=== PATIENT | male | born 1930 | race Two or more races ===

== ENCOUNTER 2017-07-08 21:29 | Inpatient (IN) | payer MEDICARE, OTHER ==
[~2017-07-08] VITALS: Ht 172.7 cm; Wt 61.2 kg
--- NOTE | 2017-07-08 21:45 | NUR ---
86 YO MALE BB AMBULANCE FROM [facility]. PATIENT IS ORIENTED TO SELF, PER EMS, PATIENT WAS SENT TO [facility] ED FOR COUGH CONGESTION WITH FEVER. PATIENT WAS DS TO ER BED, SKIN WARM AND DRY, RESP EVEN AND UNLABORED. PATIENT GOWNED, PLACED ON TAPPER SUPERVISOR. AWAITING ORDERS FROM PROVIDER, WILL CONTINUE TO MONITOR
[2017-07-08] MEDS ORDERED: PIPERACILLIN /TAZOBACTAM 3.375 G VIAL IV ONE (21:51)
--- NOTE | 2017-07-08 21:55 | NUR ---
PATIENT TRANSPORTED TO CT VIA GURNEY BY RADIOLOGY
[2017-07-08] MEDS ORDERED: IV NS 0.9% 1,000 ML BAG IV ONE (22:00)
[2017-07-08] MEDS ORDERED: IV NS 0.9% 500 ML BAG IV ONE (22:00)
[2017-07-08] MEDS ORDERED: PIPERACILLIN /TAZOBACTAM 3.375 G in IV D5W 50 ML IV ONE (22:00)
--- NOTE | 2017-07-08 22:06 | NUR ---
20G RIGHT FA IV STARTED, BLOOD SAMPLE OBTAINED AND SENT TO LAB. MEDICATED PT ORDERED
[2017-07-08 22:18] LABS: BASOPHILS % (AUTO) 0.2 % (0.0-2.0); HEMATOCRIT 35 % (39-51); HEMOGLOBIN 11.6 g/dL (13.5-17.5); LYMPHOCYTES # (AUTO) 1.6 /CMM (0.8-4.8); LYMPHOCYTES % (AUTO) 7.7 % (20.0-44.0); MEAN CORPUSCULAR HGB CONC 33 g/dl (31.0-36.0); MEAN CORPUSCULAR VOLUME 94 fL (80-96); MONOCYTES # (AUTO) 0.8 /CMM (0.1-1.30); MONOCYTES % (AUTO) 3.8 % (2.0-12.0); NEUTROPHILS # (AUTO) 17.8 /CMM (1.8-8.9); NEUTROPHILS % (AUTO) 88.3 % (43.0-81.0); PLATELET COUNT (AUTO) 442 /CMM (150-450); RDW COEFFICIENT OF VARIATION 13.4 (11.5-15.0); RED BLOOD CELL COUNT(AUTO) 3.69 MIL/uL (4.5-6.0); WHITE BLOOD COUNT (AUTO) 20.2 K/uL (4.3-11.0)
[2017-07-08 22:26] LABS: CALCIUM, SERUM 9.2 mg/dL (8.5-10.1); CARBON DIOXIDE 31 mmol/L (21-32); CHLORIDE 105 mmol/L (98-107); GLUCOSE 116 mg/dL (74-106); POTASSIUM 4.1 mmol/L (3.5-5.1); SODIUM SERUM 141 mmol/L (136-145); UREA NITROGEN, BLOOD 21 mg/dL (7-18)
[2017-07-08 22:32] LABS: ALANINE AMINOTRANSFERASE 18 U/L (12-78); ALBUMIN 2.1 g/dL (3.4-5.0); ALKALINE PHOSPHATASE 59 U/L (46-116); ASPARTATE AMINOTRANSFERASE 16 U/L (15-37); BILIRUBIN,DIRECT 0.1 mg/dL (0.0-0.2); BILIRUBIN,TOTAL 0.4 mg/dL (0.2-1.0); TOTAL PROTEIN, SERUM 6.8 g/dL (6.4-8.2); TROPONIN I < 0.017 ng/mL (0.00-0.056)
[2017-07-08 22:41] LABS: INR 1.25 (0.87-1.13)
[2017-07-08 23:19] LABS: APPEARANCE,URINE CLOUDY (CLEAR); BILIRUBIN,URINE NEGATIVE (NEGATIVE); BLOOD, URINE 3+ Ery/uL (NEGATIVE); COLOR,URINE DARK YELLOW (YELLOW); KETONES,URINE NEGATIVE (NEGATIVE); LEUKOCYTE ESTERASE ,URINE 1+ (NEGATIVE); NITRITE, URINE POSITIVE (NEGATIVE); PROTEIN,URINE 2+ mg/dl (NEGATIVE); UGLUCOSE NEGATIVE (NEGATIVE); UROBILINOGEN,URINE 0.2 EU/dL (0.2)
[2017-07-08 23:23] LABS: RBC,URINE TOO NUMEROUS TO COUN /HPF (0-2)
[2017-07-08 23:24] LABS: BACTERIA,URINE Many /HPF (None Seen); SQUAMOUS EPITHELIAL CELL,UR Few /HPF (None Seen); WBC,URINE 51-80 /HPF (0-3)
--- NOTE | 2017-07-08 23:47 | NUR ---
REPORT GIVEN TO MICHAEL COBB FOR SENDY
[2017-07-09] VITALS: BP 110/62
--- NOTE | 2017-07-09 | NUR ---
FARM PLANNER ADMITTING NOTES RECEIVED PATIENT FROM ER, NOTED WITH BILATERAL SOFT WRIST RESTRAINTS, TRANSFERRED TO INPATIENT ROOM , ASSESSED WRIST NOTED WNL, SKIN INTACT, PALPABLE PULSES, RANGE OF MOTION WNL, IV SITE TO RIGHT WRIST 22 GAUGE INTACT AND PATENT, NO REDNESS NO INFILTRATION PRESENT, RESPIRATIONS EVEN AND UNLABORED , NO SOB NOTED AT THIS TIME, NOTED SUPRAPUBIC CATHETER INTACT AND DRAINING WELL , NOTED URINE YELLOW, BODY ASSESSMENT DONE NOTED WITH BILATERAL UPPER ARM SCATTERED INTACT DISCOLORATIONS AND SACRAL AND RIGHT TROCHANTER REDNESS, PICTURES TAKEN, SITES COVERED WITH MEPILEX AND OFFLOADED AREAS, PRESSURE REDUCING MATTRESS IN PLACE, PATIENT ALERT AND ORIENTED TO SELF , NOTED USING PROFANITY IN [place] AND ATTEMPTING TO KICK AND HIT STAFF. REMAINS AFEBRILE AT THIS TIME, NO FACIAL GRIMACING OR MOANS PRESENT. MD AWARE OF ADMISSION WITH NEW ORDERS NOTED AND CARRIED OUT , ON IT DATA ARCHITECT SR 80. WILL CONTINUE TO MONITOR , PATIENT REMAINS COMFORTABLE AT THIS TIME, ORIENTED TO ROOM STAFF, CALL LIGHT, SAFETY MEASURES IN PLACE , CALL LIGHT WITHIN REACH.
--- NOTE | 2017-07-09 00:06 | NUR ---
TRANSPORTED PT TO TELE BED WITHOUT INCIDENT
[2017-07-09] MEDS ORDERED: MAG HYDROX/AL HYDROX/SIMETH 30 ML UDC PO PRN (00:30)
[2017-07-09] MEDS ORDERED: Z GUARD REMEDY 2 OZ OINT TP PRN (00:30)
[2017-07-09] MEDS ORDERED: ACETAMINOPHEN 325 MG TABLET PO PRN (00:30)
[2017-07-09] MEDS ORDERED: VANCOMYCIN 1 GM in IV NS 0.9% 250 ML IV ONE (00:30)
[2017-07-09] MEDS ORDERED: HYDROCODONE/APAP 5/325MG 1 EACH TABLET PO PRN (00:30)
[2017-07-09] MEDS ORDERED: MAGNESIUM HYDROXIDE 30 ML UDC PO PRN (00:30)
[2017-07-09] MEDS ORDERED: ONDANSETRON HCL/PF 4 MG/2 ML VIAL IVP PRN (00:30)
[2017-07-09] MEDS: IV NS 0.9% 1,000 ML IV PRN (01:05)
[2017-07-09] MEDS ORDERED: VANCOMYCIN 1 GM VIAL ONE (01:11)
[2017-07-09] MEDS ORDERED: PIPERACILLIN /TAZOBACTAM 3.375 G VIAL IV ONE (01:11)
[2017-07-09 04:00] VITALS: BP_SYST 111; BP_SYST 117; BP_DIAS 49; BP_DIAS 56
[2017-07-09 04:51] VITALS: BP 117/56
[2017-07-09] MEDS ORDERED: PIPERACILLIN /TAZOBACTAM 3.375 G in IV D5W 50 ML IV SCH (06:00)
--- NOTE | 2017-07-09 06:55 | NUR ---
TRANSMISSION SUPERVISOR NOTES PATIENT REMAINS IN BED, REPOSITIONED , FREQUENT CHECKS ORDERED, AWAKE ALERT X 1 , RESPIRATION EVEN AND UNLABORED, NO DISTRESS, BILATERAL SOFT WRIST RESTRAINTS INTACT, WITHOUT ANY ISSUES , SUPRAPUBIC CATHETER REMAINS INTACT, IVF RUNNING ORDERED, IV SITE INTACT AND PATENT NO REDNESS , NO INFILTRATION PRESENT, SAFETY MEASURES IN PLACE, CALL LIGHT KEPT WITHIN REACH , PATIENT REMAINS AFEBRILE AT THIS TIME, COMFORTABLE , WILL CONTINUE TO MONITOR AND ENDORSE TO NEXT SHIFT. Addendum: 07/09/17 at 0659 by NICOLE WHEAT RN CLOSING
--- NOTE | 2017-07-09 07:25 | NUR ---
RN NOTES PATIENT A/OX1, VERBALLY RESPONSIVE BUT INCOHERENT, PATIENT IS ON BILATERAL SOFT WRIST RESTRAINTS DUE TO ATTEMPT OF PULLING OUT LINES, PATIENT STILL APPEARS RESTLESS, PUTTING BOTH FEET ON THE SIDERAILS, PATIENT RE-DIRECTED, PATIENT'S PIV PATENT AND FLUSHES WELL, WITH IVF INFUSING AND TOLERATING WELL, PATIENT KEPT NPO AT THIS TIME, ST EVAL STILL PENDING. NEEDS ATTENDED, SAFETY MEASURES IN PLACED, CALL LIGHT WITHIN REACH, WILL CONTINUE TO MONITOR.
[2017-07-09 07:34] LABS: BASOPHILS % (AUTO) 0.2 % (0.0-2.0); HEMATOCRIT 31 % (39-51); HEMOGLOBIN 10.4 g/dL (13.5-17.5); LYMPHOCYTES # (AUTO) 1.3 /CMM (0.8-4.8); LYMPHOCYTES % (AUTO) 10.7 % (20.0-44.0); MEAN CORPUSCULAR HGB CONC 34 g/dl (31.0-36.0); MEAN CORPUSCULAR VOLUME 95 fL (80-96); MONOCYTES # (AUTO) 0.6 /CMM (0.1-1.30); MONOCYTES % (AUTO) 4.8 % (2.0-12.0); NEUTROPHILS # (AUTO) 10.7 /CMM (1.8-8.9); NEUTROPHILS % (AUTO) 84.3 % (43.0-81.0); PLATELET COUNT (AUTO) 334 /CMM (150-450); RDW COEFFICIENT OF VARIATION 13.4 (11.5-15.0); RED BLOOD CELL COUNT(AUTO) 3.26 MIL/uL (4.5-6.0); WHITE BLOOD COUNT (AUTO) 12.6 K/uL (4.3-11.0)
[2017-07-09 07:38] LABS: CALCIUM, SERUM 8.7 mg/dL (8.5-10.1); CARBON DIOXIDE 30 mmol/L (21-32); CHLORIDE 109 mmol/L (98-107); CREATININE 0.9 mg/dL (0.6-1.3); GLUCOSE 99 mg/dL (74-106); PHOSPHORUS 2.5 mg/dL (2.5-4.9); POTASSIUM 3.8 mmol/L (3.5-5.1); SODIUM SERUM 141 mmol/L (136-145); UREA NITROGEN, BLOOD 17 mg/dL (7-18)
[2017-07-09 08:00] VITALS: BP 138/54
[2017-07-09] MEDS ORDERED: FEE PK DOSING 1 MIN EA MC ONE (08:11)
[2017-07-09 08:17] LABS: CHOLESTEROL 102 mg/dL (<200); HDL CHOLESTEROL 35 mg/dL (40-60); LDL 63 mg/dL (0-99); THYROID STIMULATING HORMONE 1.534 uIU/mL (0.358-3.74); TRIGLYCERIDES 54 mg/dL (30-150)
[2017-07-09] MEDS ORDERED: NIAC50TA4 PO (08:37)
[2017-07-09] MEDS ORDERED: CRAN3875 PO (08:37)
[2017-07-09] MEDS ORDERED: DONE10TA11 PO (08:37)
[2017-07-09] MEDS ORDERED: CRAN425C6 PO (08:37)
[2017-07-09] MEDS ORDERED: VALP250C PO (08:37)
[2017-07-09] MEDS ORDERED: ACET-868 PO (08:37)
[2017-07-09] MEDS ORDERED: DOCU100C36 PO (08:37)
[2017-07-09] MEDS ORDERED: LEVO25TA9 PO (08:37)
[2017-07-09] MEDS: PIPERACILLIN /TAZOBACTAM 2.25 G in IV D5W 50 ML IV SCH ×2 (12:09→17:08)
[2017-07-09] MEDS: VANCOMYCIN 500 MG in IV D5W 100 ML IV SCH (13:29)
[2017-07-09 16:00] VITALS: BP 130/71
[2017-07-09] MEDS: DIVALPROEX SODIUM 250 MG TABLET.DR PO SCH (16:06)
[2017-07-09] MEDS: DOCUSATE SODIUM 100 MG CAPSULE PO SCH (16:06)
--- NOTE | 2017-07-09 18:36 | NUR ---
RN NOTES PATIENT A/OX1, STILL ON BILATERAL SOFT WRIST RESTRAINTS DUE TO RESTLESSNESS, COMBATIVENESS, AND ATTEMPTING TO PULL OUT SUPRACUBIC CATHETER, PATIENT IS STILL NPO AT THIS TIME, IVF ONGOING AND TOLERATING WELL, IV ANTIBIOTICS GIVEN ORDERED, PATIENT IS TURNED AND REPOSITIONED EVERY 2 HOURS, SKIN CARE RENDERED, Z-GUARD AND MEPILEX APPLIED FOR SKIN MANAGEMENT, OFFLOADED BILATERAL HEELS, DVT PUMP IN PLACED, SUPRAPUBIC CATHETER DRAINING WITH YELLOW URINE. NEEDS ATTENDED AND MET, CALL LIGHT WITHIN REACH, WILL ENDORSE TO LEAD GENERATION REPRESENTATIVE FOR SENDY.
--- NOTE | 2017-07-09 19:35 | NUR ---
MS RN OPENING NOTES RECEIVED PT SITTING UPRIGHT IN BED. AWAKE AND RESPONSIVE, AFEBRILE. RESPIRATIONS ARE EVEN AND UNLABORED, NOT IN ANY ACUTE DISTRESS NOTED. NO FACIAL GRIMACING NOTED. SAFETY MEASURES ARE IN PLACE. BED IS IN ITS LOWEST AND LOCKED POSITION. WILL CONTINUE TO MONITOR THROUGHOUT SHIFT.
[2017-07-09 20:00] VITALS: BP 139/68
[2017-07-09] MEDS: DONEPEZIL 5 MG TABLET PO SCH (21:21)
--- NOTE | 2017-07-09 21:21 | NUR ---
MS RN NOTES PT IS CURRENTLY NPO D/T AWAITING ST EVAL. NO ASPIRATIONS NOTED AT THIS TIME. PO MEDICATIONS WITHHELD. WILL CONTINUE TO MONITOR PT THROUGHOUT SHIFT.
[2017-07-10] MEDS: PIPERACILLIN /TAZOBACTAM 2.25 G in IV D5W 50 ML IV SCH ×5 (00:32→23:04)
[2017-07-10] MEDS: IV NS 0.9% 1,000 ML IV PRN (00:33)
[2017-07-10] MEDS: VANCOMYCIN 500 MG in IV D5W 100 ML IV SCH ×2 (01:48→13:37)
--- NOTE | 2017-07-10 06:29 | NUR ---
MS RN CLOSING NOTES ALL NEEDS MET AND RENDERED. AWAKE AND RESPONSIVE, AFEBRILE. RESPIRATIONS ARE EVEN AND UNLABORED, NOT IN ANY ACUTE DISTRESS NOTED. NO FACIAL GRIMACING OR MOANING NOTED. NO C/O SOB, N/V. SUPRAPUBIC CATH IN PLACE, FREE OF KINKS, DRAINING YELLOW URINE. IV SITE INTACT, NO INFILTRATION NOTED. DRESSING KEPT CLEAN AND DRY. SAFETY MEASURES ARE IN PLACE. BED IS IN ITS LOW AND LOCKED POSITION. WILL ENDORSE TO NEXT SHIFT FOR CONTINUITY OF CARE.
--- NOTE | 2017-07-10 07:05 | NUR ---
RN NOTES PT IS LAYING DOWN IN BED, SLEEPING COMFORTABLY. PT ON RA, RESPIRATIONS ARE EVEN AND UNLABORED. IV ON RFA INTACT AND RUNNING NS @ 50ML/HR. SUPRAPUBIC CATHETER IS INTACT AND DRAINING TO GRAVITY. SOFT WRIST RESTRAINTS ARE IN PLACE, NO SIGNS OF IRRITATION NOTED ON SKIN. SAFETY MEASURES ARE IN PLACE, CALL LIGHT IS IN REACH. WILL CONTINUE TO MONITOR.
[2017-07-10] MEDS: LEVOTHYROXINE SODIUM 25 MCG TABLET PO SCH (07:30)
[2017-07-10 08:00] VITALS: BP 114/77
[2017-07-10] MEDS: DOCUSATE SODIUM 100 MG CAPSULE PO SCH ×2 (08:45→16:48)
[2017-07-10] MEDS: DIVALPROEX SODIUM 250 MG TABLET.DR PO SCH ×3 (09:00→16:48)
--- NOTE | 2017-07-10 09:10 | NUR ---
WOUND CARE CONSULT: PT PRESENTS WITH LEFT BUTTOCK DEEP TISSUE INJURY WHICH IS INTACT, RT TROCHANTER BLANCHABLE REDNESS, SACRAL BLANCHABLE REDNESS WITH BONY AREA AND SOME SCARRING NOTED TO RT BUTTOCKS. PT ON NAVEED ISOFLEX LOW AIRLOSS BED. ALL WOUND CARE RECOMMENDATIONS AND SKIN PROTECTION MEASURES IN PLACE AND DISCUSSED WITH NURSING STAFF. PT IS COMBATIVE AT TIMES PER NURSING STAFF. CURRENT DIANA SCORE IS 13. PT HAS SUPRAPUBIC CATH. Addendum: 07/10/17 at 0913 by KRISTIN LINDO WNDNU Amended: Links added.
[2017-07-10 16:00] VITALS: BP_SYST 114; BP_SYST 122; BP_DIAS 62; BP_DIAS 66
--- NOTE | 2017-07-10 18:29 | NUR ---
RN NOTES PT IS SITTING UP IN BED, RESTING COMFORTABLY. PT ON RA, RESPIRATIONS ARE EVEN AND UNLABORED. IV ON RFA INTACT AND RUNNING NS @ 50ML/HR. SUPRAPUBIC CATHETER IS INTACT AND DRAINING TO GRAVITY. SOFT WRIST RESTRAINTS ARE IN PLACE, SKIN CHECK DONE Q2HRS, NO SIGNS OF IRRITATION NOTED. ALL MEDS WERE GIVEN ORDERED AND PT NEEDS MET. SAFETY MEASURES ARE IN PLACE, CALL LIGHT IS IN REACH. WILL ENDORSE TO RADIOPHARMACIST RN FOR CONTINUITY OF CARE.
--- NOTE | 2017-07-10 19:24 | NUR ---
MS RN NOTES: RECEIVED PT IN BED ON 2LPM VIA NC. PT ASLEEP AT THIS TIME. PT HAS BILATERAL SOFT WRIST RESTRAINTS. PT HAS SUPRAPUBIC CATH AND IS ATTACHED TO DRAINAGE BAG WITH YELLOW URINE DRAINING. PT HAS IV ON R FOREARM #22G AND IS BEING INFUSED WITH NS AT 50ML/HR. CALL LIGHT WITHIN PT'S REACH. BED KEPT IN LOW, LOCKED POSITION, AND SIDE RAILS X 2UP. WILL CONTINUE TO MONITOR PT.
[2017-07-10 20:01] VITALS: BP 123/54
[2017-07-10] MEDS: DONEPEZIL 5 MG TABLET PO SCH (21:28)
[2017-07-11] MEDS: VANCOMYCIN 500 MG in IV D5W 100 ML IV SCH ×2
[2017-07-11] MEDS: IV NS 0.9% 1,000 ML IV PRN (03:48)
[2017-07-11] MEDS: PIPERACILLIN /TAZOBACTAM 2.25 G in IV D5W 50 ML IV SCH (05:03)
--- NOTE | 2017-07-11 07:05 | NUR ---
RN NOTES PT IS LAYING DOWN IN BED, AWAKE, AND RESTING COMFORTABLY. PT ON RA, RESPIRATIONS ARE EVEN AND UNLABORED. IV ON RFA INTACT AND RUNNING NS @ 50ML/HR. SOFT WRIST RESTRAINTS ARE IN PLACE, NO IRRITATION NOTED. SAFETY MEASURES ARE IN PLACE, CALL LIGHT IS IN REACH. WILL CONTINUE TO MONITOR.
--- NOTE | 2017-07-11 07:30 | NUR ---
MS RN CLOSING NOTES: ALL NEEDS WERE ATTENDED AND ANTICIPATED FOR. PT IN BED ON 2LPM VIA NC. PT HAS BILATERAL SOFT WRIST RESTRAINTS. PT HAS SUPRAPUBIC CATH AND IS ATTACHED TO DRAINAGE BAG WITH YELLOW URINE DRAINING. OUTPUT WAS 1100ML. PT HAS IV ON R FOREARM #22G AND IS BEING INFUSED WITH NS AT 50ML/HR. CALL LIGHT WITHIN PT'S REACH. BED KEPT IN LOW, LOCKED POSITION, AND SIDE RAILS X 2UP. ENDORSED TO AM NURSE FOR SENDY.
[2017-07-11 08:00] VITALS: BP 115/62
[2017-07-11] MEDS: DIVALPROEX SODIUM 250 MG TABLET.DR PO SCH ×3 (08:18→16:47)
[2017-07-11] MEDS: DOCUSATE SODIUM 100 MG CAPSULE PO SCH ×2 (08:18→16:47)
[2017-07-11] MEDS: LEVOTHYROXINE SODIUM 25 MCG TABLET PO SCH (08:18)
[2017-07-11 10:32] LABS: BASOPHILS % (AUTO) 0.2 % (0.0-2.0); EOSINOPHILS % (AUTO) 0.7 % (0.0-6.0); HEMATOCRIT 34 % (39-51); HEMOGLOBIN 11.5 g/dL (13.5-17.5); LYMPHOCYTES # (AUTO) 1.4 /CMM (0.8-4.8); LYMPHOCYTES % (AUTO) 17.4 % (20.0-44.0); MEAN CORPUSCULAR HGB CONC 34 g/dl (31.0-36.0); MEAN CORPUSCULAR VOLUME 94 fL (80-96); MONOCYTES # (AUTO) 0.4 /CMM (0.1-1.30); MONOCYTES % (AUTO) 5.2 % (2.0-12.0); NEUTROPHILS # (AUTO) 5.9 /CMM (1.8-8.9); NEUTROPHILS % (AUTO) 76.5 % (43.0-81.0); PLATELET COUNT (AUTO) 448 /CMM (150-450); RDW COEFFICIENT OF VARIATION 13.3 (11.5-15.0); RED BLOOD CELL COUNT(AUTO) 3.64 MIL/uL (4.5-6.0); WHITE BLOOD COUNT (AUTO) 7.8 K/uL (4.3-11.0)
[2017-07-11 10:49] LABS: CALCIUM, SERUM 8.6 mg/dL (8.5-10.1); CARBON DIOXIDE 27 mmol/L (21-32); CHLORIDE 107 mmol/L (98-107); CREATININE 0.9 mg/dL (0.6-1.3); GLUCOSE 114 mg/dL (74-106); PHOSPHORUS 2.9 mg/dL (2.5-4.9); SODIUM SERUM 139 mmol/L (136-145); UREA NITROGEN, BLOOD 9 mg/dL (7-18)
[2017-07-11] MEDS: CEFAZOLIN 1 GM in IV D5W 50 ML IV SCH ×2 (12:46→20:02)
[2017-07-11] MEDS ORDERED: BARIUM SULFATE 240 ML ORAL.SUSP PO ONE (14:42)
[2017-07-11] MEDS ORDERED: BARIUM SULFATE 148 GM SUSP.RECON PO ONE (14:43)
[2017-07-11 16:00] VITALS: BP 126/60
--- NOTE | 2017-07-11 18:27 | NUR ---
RN NOTES PT IS LAYING DOWN IN BED, RESTING COMFORTABLY. PT ON RA, RESPIRATIONS ARE EVEN AND UNLABORED. IV ON RFA INTACT AND PATENT. SUPRAPUBIC CATHETER IS IN PLACE AND DRAINING TO GRAVITY. SOFT WRIST RESTRAINTS ARE IN PLACE, SKIN CHECKED Q2HRS, NO SIGNS OF IRRITATION NOTED. NO SIGNS OF DISTRESS NOTED. SAFETY MEASURES ARE IN PLACE, CALL LIGHT IS IN REACH. WILL ENDORSE TO WEATHERIZATION SPECIALIST RN FOR CONTINUITY OF CARE.
--- NOTE | 2017-07-11 19:17 | NUR ---
MS COBB OPENING NOTES: RECEIVED PT IN BED AND IS AWAKE. PT IS ON BILATERAL SOFT WRIST RESTRAINTS. NO S/S OF DISTRESS. PT ON 2LPM VIA NC. BED ALARM ACTIVATED. CALL LIGHT WITHIN PT'S REACH. BED KEPT IN LOW, LOCKED POSITION, AND SIDE RAILS X 2UP. PT ON IV AND IS BEING INFUSED AT NS WITH TKO. WILL CONTINUE TO MONITOR PT. Addendum: 07/11/17 at 2000 by POLLY KOWALSKI RN PT HAS SUPRAPUBIC CATH AND IS ATTACHED TO DRAINAGE BAG WITH YELLOW URINE DRAINING.
[2017-07-11 20:00] VITALS: BP 107/60
[2017-07-11 20:47] VITALS: BP 107/60
[2017-07-11] MEDS: DONEPEZIL 5 MG TABLET PO SCH (21:04)
[2017-07-12] MEDS: CEFAZOLIN 1 GM in IV D5W 50 ML IV SCH ×2 (04:04→12:29)
--- NOTE | 2017-07-12 06:24 | NUR ---
MS RN CLOSING NOTES: ALL NEEDS WERE ATTENDED AND ANTICIPATED. PT IS AWAKE AND IS FAROESE SPEAKING ONLY. PT IS A/OX1. PT KEPT CLEAN, DRY, AND COMFORTABLE. PT HAS IV ON R FOREARM AND IS PATENT AND INTACT. PT HAS BILATERAL SOFT WRIST RESTRAINTS PT ATTEMPTS TO GET OUT OF BED AND PULL OUT HIS LINES. PT HAS SUPRAPUBIC CATH AND IS ATTACHED TO DRAINAGE BAG. OUTPUT WAS 500ML. BED ALARM ACTIVATED. CALL LIGHT WITHIN PT'S REACH. BED KEPT IN LOW, LOCKED POSITION, AND SIDE RAILS X 2UP. WILL ENDORSE TO AM NURSE FOR SENDY.
[2017-07-12 07:16] LABS: BASOPHILS % (AUTO) 0.3 % (0.0-2.0); EOSINOPHILS % (AUTO) 1.5 % (0.0-6.0); HEMATOCRIT 35 % (39-51); HEMOGLOBIN 11.9 g/dL (13.5-17.5); LYMPHOCYTES # (AUTO) 1.3 /CMM (0.8-4.8); LYMPHOCYTES % (AUTO) 18.4 % (20.0-44.0); MEAN CORPUSCULAR HGB CONC 34 g/dl (31.0-36.0); MEAN CORPUSCULAR VOLUME 94 fL (80-96); MONOCYTES # (AUTO) 0.5 /CMM (0.1-1.30); MONOCYTES % (AUTO) 7.4 % (2.0-12.0); NEUTROPHILS # (AUTO) 5.1 /CMM (1.8-8.9); NEUTROPHILS % (AUTO) 72.4 % (43.0-81.0); PLATELET COUNT (AUTO) 411 /CMM (150-450); RDW COEFFICIENT OF VARIATION 13.1 (11.5-15.0); RED BLOOD CELL COUNT(AUTO) 3.75 MIL/uL (4.5-6.0)
--- NOTE | 2017-07-12 07:45 | NUR ---
MS RN OPENING NOTE PATIENT IS RESTING IN BED AT THIS TIME. ALERT AND ORIENTED X1. NO FACIAL GRIMACING NOTED. NO SOB OR DISTRESS NOTED. ABLE TO COMMUNICATE NEEDS. IV INTACT AND PATENT NO REDNESS OR SWELLING NOTED. CALL LIGHT WITHIN REACH. SAFETY MEASURES IMPLEMENTED. ON 2L/MIN VIA NASAL CANNULA TOLERATING WELL. ON SOFT RESTRAINTS FOR SAFETY. [facility] SOFT DIET WITH NECTAR THICK LIQUID. WILL CONTINUE TO MONITOR THROUGHOUT SHIFT
[2017-07-12 08:00] VITALS: BP 137/68
[2017-07-12 08:25] LABS: CALCIUM, SERUM 8.7 mg/dL (8.5-10.1); CARBON DIOXIDE 30 mmol/L (21-32); CHLORIDE 105 mmol/L (98-107); CREATININE 0.8 mg/dL (0.6-1.3); GLUCOSE 82 mg/dL (74-106); PHOSPHORUS 2.6 mg/dL (2.5-4.9); POTASSIUM 3.8 mmol/L (3.5-5.1); SODIUM SERUM 140 mmol/L (136-145); UREA NITROGEN, BLOOD 9 mg/dL (7-18)
[2017-07-12] MEDS: LEVOTHYROXINE SODIUM 25 MCG TABLET PO SCH (08:28)
[2017-07-12] MEDS: DOCUSATE SODIUM LIQ 100 MG/10 ML UDC PO SCH ×2 (08:28→17:06)
[2017-07-12] MEDS: DIVALPROEX SODIUM 250 MG TABLET.DR PO SCH ×3 (08:28→17:06)
[2017-07-12 16:00] VITALS: BP 128/67
--- NOTE | 2017-07-12 18:48 | NUR ---
MS RN CLOSING NOTE PATIENT RESTING COMFORTABLY AT THIS TIME. NO PAIN NOTED. NO SOB OR DISTRESS NOTED. CALL LIGHT WITHIN REACH AT ALL TIMES. SAFETY MEASURES IMPLEMENTED ABLE TO COMMUNICATE NEEDS. IV INTACT AND PATENT NO REDNESS OR SWELLING NOTED. ALL DUE MEDICATIONS GIVEN ORDERED. ALL NURSING CARE NEEDS ATTENDED TO NEEDED. SOFT RESTRAINTS FOR SAFETY, WOUND TREATMENT DONE. WILL ENDORSE TO CRIMINAL PSYCHOLOGIST FOR SENDY
--- NOTE | 2017-07-12 19:35 | NUR ---
RN MS OPENING NOTES RECEIVED PATIENT IN BED ,AWAKE ALERT ORIENTED X1 ,VERBALLY RESPONSIVE IN DIVE[place], RESPIRATIONS EVEN AND UNLABORED, NO FACIAL GRIMACING, NO COMPLAINTS OF PAIN OR DISCOMFORT AT THIS TIME, SUPRAPUBIC CATHETER INTACT AND PATENT,DRAINING WELL, RIGHT FA 22 GAUGE INTACT AND PATENT,SOFT BILATERAL WRIST RESTRAINTS ON , ASSESSMENT DONE TO WRIST SKIN INTACT ,PALPABLE PULSES , NO COMPLICATIONS NOTED, ORIENTED TO STAFF AND CALL LIGHT, SAFETY MEASURES IN PLACE WILL CONTINUE TO MONITOR, PATIENT REMAINS COMFORTABLE AT THIS TIME.
[2017-07-12 20:00] VITALS: BP 139/61
[2017-07-12] MEDS: CEFAZOLIN 1 GM in IV NS 0.9% 50 ML IV SCH (20:24)
[2017-07-12] MEDS: DONEPEZIL 5 MG TABLET PO SCH (22:32)
[2017-07-12 23:25] VITALS: BP 139/61
--- NOTE | 2017-07-13 03:50 | NUR ---
RN MS NOTES PATIENT REPOSITIONED TO OFFLOAD RIGHT SIDE HIP AFFECTED AREA, PILLOWS PLACED ON RIGHT SIDE TO OFFLOAD, HOWEVER PATIENT SELF REPOSITIONED BACK TO RIGHT SIDE. WILL CONTINUE TO MONITOR , WOUND DRESSING CHANGED, INTACT AND DRY
[2017-07-13] MEDS: CEFAZOLIN 1 GM in IV NS 0.9% 50 ML IV SCH ×3 (04:23→21:44)
--- NOTE | 2017-07-13 04:58 | NUR ---
RN MS NOTES WOUND CARE DONE ORDERED,DRESSINGS DRY AND INTACT NO DETERIORATION PRESENT, OFFLOADED AFFECTED SITES.
[2017-07-13] MEDS: LEVOTHYROXINE SODIUM 25 MCG TABLET PO SCH (06:31)
--- NOTE | 2017-07-13 06:43 | NUR ---
RN MS CLOSING NOTES PATIENT IN BED ,AWAKE ALERT ORIENTED X1 ,VERBALLY RESPONSIVE IN ARAB[place], RESPIRATIONS EVEN AND UNLABORED, NO FACIAL GRIMACING, NO COMPLAINTS OF PAIN OR DISCOMFORT AT THIS TIME, SUPRAPUBIC CATHETER INTACT AND PATENT,DRAINING WELL, LEFT WRIST 22 GAUGE INTACT AND PATENT NO REDNESS , NO INFILTRATION PRESENT,SOFT BILATERAL WRIST RESTRAINTS ON , ASSESSMENT DONE TO WRIST SKIN INTACT ,PALPABLE PULSES , NO COMPLICATIONS NOTED, SAFETY MEASURES IN PLACE WILL CONTINUE TO MONITOR, AND ENDORSE TO NEXT SHIFT FOR CONTINUITY OF CARE, PATIENT REMAINS COMFORTABLE AT THIS TIME.
--- NOTE | 2017-07-13 07:30 | NUR ---
RN OPENING NOTES RECEIVED PT. IN BED AWAKE, CONFUSED, PT. WAS REORIENTED, AND REPOSITIONED. BREATHING UNLABORED, AND EVENLY ON OXYGEN AT 2L/MIN. NO SOB. NO S/S OF ACUTE DISTRESS. PT. HAS SUPRAPUBIC CATHETER WITH 150 CC OUTPUT OF CLEAR, AND YELLOW URINE. WEARING BILATERAL SOFT WRIST RESTRAINTS. BED IS IN LOWEST, AND LOCKED POSITION. 2 SIDE RAILS UP, AND CALL LIGHT IS WITHIN REACH. ALL NEEDS MET. WILL CONTINUE TO ASSESS AND MONITOR.
[2017-07-13 07:36] LABS: BASOPHILS % (AUTO) 0.2 % (0.0-2.0); HEMATOCRIT 36 % (39-51); HEMOGLOBIN 12.1 g/dL (13.5-17.5); LYMPHOCYTES # (AUTO) 1.2 /CMM (0.8-4.8); LYMPHOCYTES % (AUTO) 15.8 % (20.0-44.0); MEAN CORPUSCULAR HGB CONC 34 g/dl (31.0-36.0); MEAN CORPUSCULAR VOLUME 93 fL (80-96); MONOCYTES # (AUTO) 0.3 /CMM (0.1-1.30); MONOCYTES % (AUTO) 3.6 % (2.0-12.0); NEUTROPHILS # (AUTO) 5.7 /CMM (1.8-8.9); NEUTROPHILS % (AUTO) 78.4 % (43.0-81.0); PLATELET COUNT (AUTO) 376 /CMM (150-450); RDW COEFFICIENT OF VARIATION 13.3 (11.5-15.0); RED BLOOD CELL COUNT(AUTO) 3.84 MIL/uL (4.5-6.0); WHITE BLOOD COUNT (AUTO) 7.3 K/uL (4.3-11.0)
[2017-07-13 08:00] VITALS: BP 127/66
[2017-07-13 08:05] LABS: CALCIUM, SERUM 8.9 mg/dL (8.5-10.1); CARBON DIOXIDE 29 mmol/L (21-32); CHLORIDE 106 mmol/L (98-107); CREATININE 0.7 mg/dL (0.6-1.3); GLUCOSE 77 mg/dL (74-106); MAGNESIUM 2.2 mg/dL (1.8-2.4); PHOSPHORUS 2.8 mg/dL (2.5-4.9); POTASSIUM 4.4 mmol/L (3.5-5.1); SODIUM SERUM 141 mmol/L (136-145); UREA NITROGEN, BLOOD 11 mg/dL (7-18)
[2017-07-13] MEDS: DOCUSATE SODIUM LIQ 100 MG/10 ML UDC PO SCH ×3 (08:57→17:25)
--- NOTE | 2017-07-13 08:59 | NUR ---
RN NOTES PT. WAS REFUSING PO MEDICATIONS, COLACE, AND VALPORIC ACID. PT. WAS SPITTING OUT MEDICATION.
[2017-07-13] MEDS ORDERED: VALPROIC ACID 250 MG/5 ML UDC GT SCH (09:00)
[2017-07-13 16:00] VITALS: BP 159/73
[2017-07-13] MEDS: VALPROATE 500 MG in IV D5W 100 ML IV SCH ×2 (16:30→20:43)
--- NOTE | 2017-07-13 19:30 | NUR ---
RN CLOSING NOTES PT. IN BED AWAKE, CONFUSED, PT. WAS REORIENTED, AND REPOSITIONED. BREATHING UNLABORED, AND EVENLY ON OXYGEN AT 2L/MIN VIA NASAL CANNULA. NO SOB. NO S/S OF ACUTE DISTRESS. PT. HAS SUPRAPUBIC CATHETER WITH 250 CC OUTPUT OF CLEAR, AND YELLOW URINE. WEARING BILATERAL SOFT WRIST RESTRAINTS. BED IS IN LOWEST, AND LOCKED POSITION. 2 SIDE RAILS UP, AND CALL LIGHT IS WITHIN REACH. ALL NEEDS MET. WILL ENDORSE REPORT TO NURSE.
--- NOTE | 2017-07-13 19:55 | NUR ---
RN MS OPENING NOTES RECEIVED PATIENT IN BED ,AWAKE ALERT ORIENTED X1 ,VERBALLY RESPONSIVE IN GREEK, RESPIRATIONS EVEN AND UNLABORED, NO FACIAL GRIMACING, NO COMPLAINTS OF PAIN OR DISCOMFORT AT THIS TIME, SUPRAPUBIC CATHETER INTACT AND PATENT,DRAINING WELL, RIGHT UPPER ARM MIDLINE INTACT AND PATENT,SOFT BILATERAL WRIST RESTRAINTS ON , ASSESSMENT DONE TO WRIST SKIN INTACT ,PALPABLE PULSES , NO COMPLICATIONS NOTED, REPOSITIONED, ORIENTED TO STAFF AND CALL LIGHT, SAFETY MEASURES IN PLACE WILL CONTINUE TO MONITOR, PATIENT REMAINS COMFORTABLE AT THIS TIME. ASPIRATIONS PRECAUTIONS OBSERVED, HEAD OF BED ELEVATED
[2017-07-13 20:00] VITALS: BP 144/74
--- NOTE | 2017-07-13 20:40 | NUR ---
RN MS NOTES CALLED PHARMACY TO NOTIFY OF ATN ANCEF MISSING , PER PHARM WILL BRING ATB, AWAITING ARRIVAL
[2017-07-13] MEDS: DONEPEZIL 5 MG TABLET PO SCH (21:47)
[2017-07-14] MEDS: VALPROATE 500 MG in IV D5W 100 ML IV SCH ×3 (04:48→21:16)
[2017-07-14] MEDS: CEFAZOLIN 1 GM in IV NS 0.9% 50 ML IV SCH ×3 (06:02→20:22)
[2017-07-14] MEDS: LEVOTHYROXINE SODIUM 25 MCG TABLET PO SCH (06:29)
[2017-07-14 06:47] LABS: BASOPHILS % (AUTO) 0.4 % (0.0-2.0); EOSINOPHILS % (AUTO) 3.8 % (0.0-6.0); HEMATOCRIT 32 % (39-51); HEMOGLOBIN 10.8 g/dL (13.5-17.5); LYMPHOCYTES # (AUTO) 1.2 /CMM (0.8-4.8); LYMPHOCYTES % (AUTO) 20.9 % (20.0-44.0); MEAN CORPUSCULAR HGB CONC 34 g/dl (31.0-36.0); MEAN CORPUSCULAR VOLUME 94 fL (80-96); MONOCYTES # (AUTO) 0.4 /CMM (0.1-1.30); MONOCYTES % (AUTO) 7.5 % (2.0-12.0); NEUTROPHILS # (AUTO) 3.9 /CMM (1.8-8.9); NEUTROPHILS % (AUTO) 67.4 % (43.0-81.0); PLATELET COUNT (AUTO) 368 /CMM (150-450); RDW COEFFICIENT OF VARIATION 13.5 (11.5-15.0); RED BLOOD CELL COUNT(AUTO) 3.42 MIL/uL (4.5-6.0); WHITE BLOOD COUNT (AUTO) 5.7 K/uL (4.3-11.0)
[2017-07-14 06:53] LABS: CALCIUM, SERUM 8.3 mg/dL (8.5-10.1); CARBON DIOXIDE 30 mmol/L (21-32); CHLORIDE 105 mmol/L (98-107); CREATININE 0.7 mg/dL (0.6-1.3); GLUCOSE 92 mg/dL (74-106); MAGNESIUM 1.8 mg/dL (1.8-2.4); PHOSPHORUS 2.6 mg/dL (2.5-4.9); POTASSIUM 3.5 mmol/L (3.5-5.1); SODIUM SERUM 140 mmol/L (136-145); UREA NITROGEN, BLOOD 13 mg/dL (7-18)
--- NOTE | 2017-07-14 07:00 | NUR ---
RN MS CLOSING NOTES PATIENT IN BED ,AWAKE ALERT ORIENTED X1 ,VERBALLY RESPONSIVE IN SWEDISH, RESPIRATIONS EVEN AND UNLABORED, NO FACIAL GRIMACING, NO COMPLAINTS OF PAIN OR DISCOMFORT AT THIS TIME, SUPRAPUBIC CATHETER INTACT AND PATENT,DRAINING WELL, RIGHT UPPER ARM MIDLINE INTACT AND PATENT,SOFT BILATERAL WRIST RESTRAINTS ON , ASSESSMENT DONE TO WRIST SKIN INTACT ,PALPABLE PULSES , NO COMPLICATIONS NOTED, REPOSITIONED, CALL LIGHT, SAFETY MEASURES IN PLACE WILL CONTINUE TO MONITOR, PATIENT REMAINS COMFORTABLE AT THIS TIME. ASPIRATIONS PRECAUTIONS OBSERVED, HEAD OF BED ELEVATED WILL ENDORSE TO NEXT SHIFT.
[2017-07-14 07:11] LABS: VALPROIC ACID 97 ug/mL (50-100)
--- NOTE | 2017-07-14 07:42 | NUR ---
RN OPENING NOTES RECEIVED PT. IN BED SLEEPING. BREATHING UNLABORED, AND EVENLY ON OXYGEN AT 2L/MIN VIA NASAL CANNULA. NO SOB. NO S/S OF ACUTE DISTRESS. PT. HAS SUPRAPUBIC CATHETER. PT. IS WEARING BILATERAL SOFT WRIST RESTRAINTS. BED IS IN LOWEST, AND LOCKED POSITION. 2 SIDE RAILS UP, AND PADDED. CALL LIGHT IS WITHIN REACH. ALL NEEDS MET. WILL CONTINUE TO ASSESS AND MONITOR.
[2017-07-14 08:00] VITALS: BP 130/62
[2017-07-14] MEDS: DOCUSATE SODIUM LIQ 100 MG/10 ML UDC PO SCH ×2 (08:39→16:33)
[2017-07-14] MEDS ORDERED: METRONIDAZOLE 500MG/ NS 100ML 500 MG in PREMIX 1 EA IV SCH (12:00)
[2017-07-14] MEDS ORDERED: risperiDONE-M 0.5 MG TAB.RAPDIS PO SCH (12:30)
[2017-07-14 16:00] VITALS: BP 118/55
[2017-07-14] MEDS: FLUCONAZOLE IN NS 100 MG in PREMIX 1 EA IV SCH ×2 (16:24)
[2017-07-14] MEDS: risperiDONE-M 0.5 MG TAB.RAPDIS PO SCH (17:42)
--- NOTE | 2017-07-14 19:00 | NUR ---
RN CLOSING NOTES PT. IS IN BED A&OX1, CONFUSED. BREATHING UNLABORED, AND EVENLY ON OXYGEN AT 2L/MIN VIA NASAL CANNULA. NO SOB. NO S/S OF ACUTE DISTRESS. PT. HAS SUPRAPUBIC CATHETER 400 CC OF CLEAR, AND YELLOW URINE WAS REMOVED. PT. IS WEARING BILATERAL SOFT WRIST RESTRAINTS, DUE TO PULLING OUT LINES, AND BEING COMBATIVE DURING MEDICAL CARE. PT. WAS TURNED AND REPOSITIONED. BED IS IN LOWEST, AND LOCKED POSITION. 2 SIDE RAILS UP, AND PADDED. CALL LIGHT IS WITHIN REACH. ALL NEEDS MET. WILL ENDORSE REPORT TO NURSE.
--- NOTE | 2017-07-14 19:30 | NUR ---
RECEIVED PATIENT IN BED AWAKE, AO X 1, RESPONSIVE TO VOICE AND TOUCH. NO ACUTE DISTRESS NOTED. NO SIGNS OF PAIN NOTED AT THIS TIME. IV SITE PATENT, INTACT. SUPRAPUBIC CATH PATENT, INTACT; DRAINING CLEAR YELLOW URINE. PATIENT IS VERY COOPERATIVE AND CALM. NO RESTRAINTS USED AT THIS TIME. SAFETY REMINDERS GIVEN. ON LOW BED WITH BILATERAL UPPER SIDE RAILS UP. CALL POLLACK WITHIN EASY REACH. WILL CONTINUE TO CLOSELY MONITOR.
[2017-07-14 20:00] VITALS: BP 143/66
[2017-07-14] MEDS: DONEPEZIL 5 MG TABLET PO SCH (21:16)
[2017-07-15] VITALS: BP 115/68
[2017-07-15 04:00] VITALS: BP 115/69
[2017-07-15] MEDS: CEFAZOLIN 1 GM in IV NS 0.9% 50 ML IV SCH ×2 (04:38→12:27)
--- NOTE | 2017-07-15 04:50 | NUR ---
PATIENT NOTED TO BE RESTLESS, TRYING TO PULL OUT MIDLINE, RESISTING CARE; POOR SAFETY AWARENESS. ORDER RECEIVED AND CARRIED OUT FOR BILATERAL SOFT WRIST RESTRAINT FOR PATIENT'S SAFETY. WILL CONTINUE TO MONITOR.
[2017-07-15] MEDS: VALPROATE 500 MG in IV D5W 100 ML IV SCH (05:21)
--- NOTE | 2017-07-15 06:13 | NUR ---
PATIENT ASLEEP, EASILY AROUSABLE. NO SIGNS OF PAIN NOTED. DUE MEDS GIVEN WITH NO ASE NOTED. NEEDS ATTENDED. KEPT CLEAN, DRY, AND COMFORTABLE. SAFETY PRECAUTIONS AND COMFORT MEASURES IN PLACE. WILL GIVE REPORT TO DAY SHIFT FOR CONTINUITY OF CARE.
[2017-07-15 06:40] LABS: BASOPHILS % (AUTO) 0.4 % (0.0-2.0); EOSINOPHILS % (AUTO) 2.9 % (0.0-6.0); HEMATOCRIT 31 % (39-51); HEMOGLOBIN 10.4 g/dL (13.5-17.5); LYMPHOCYTES # (AUTO) 1.5 /CMM (0.8-4.8); LYMPHOCYTES % (AUTO) 21.3 % (20.0-44.0); MEAN CORPUSCULAR HGB CONC 34 g/dl (31.0-36.0); MEAN CORPUSCULAR VOLUME 94 fL (80-96); MONOCYTES # (AUTO) 0.4 /CMM (0.1-1.30); MONOCYTES % (AUTO) 5.7 % (2.0-12.0); NEUTROPHILS # (AUTO) 4.8 /CMM (1.8-8.9); NEUTROPHILS % (AUTO) 69.7 % (43.0-81.0); PLATELET COUNT (AUTO) 369 /CMM (150-450); RDW COEFFICIENT OF VARIATION 13.4 (11.5-15.0); RED BLOOD CELL COUNT(AUTO) 3.29 MIL/uL (4.5-6.0); WHITE BLOOD COUNT (AUTO) 6.9 K/uL (4.3-11.0)
[2017-07-15 07:32] LABS: CALCIUM, SERUM 8.3 mg/dL (8.5-10.1); CARBON DIOXIDE 31 mmol/L (21-32); CHLORIDE 107 mmol/L (98-107); CREATININE 0.7 mg/dL (0.6-1.3); GLUCOSE 102 mg/dL (74-106); PHOSPHORUS 2.6 mg/dL (2.5-4.9); POTASSIUM 4.1 mmol/L (3.5-5.1); SODIUM SERUM 143 mmol/L (136-145); UREA NITROGEN, BLOOD 12 mg/dL (7-18)
[2017-07-15 08:00] VITALS: BP 121/63
--- NOTE | 2017-07-15 08:00 | NUR ---
MS COBB AM NOTES RECEIVED PATIENT IN BED AWAKE, AO X 1, RESPONSIVE TO VOICE AND TOUCH. NO ACUTE DISTRESS NOTED. NO SIGNS OF PAIN NOTED.IV SITE PATENT, INTACT. SUPRAPUBIC CATH PATENT, INTACT; DRAINING CLEAR YELLOW URINE. PATIENT IS VERY COOPERATIVE AND CALM. NO RESTRAINTS USED AT THIS TIME. SAFETY REMINDERS GIVEN. ON LOW BED WITH BILATERAL UPPER SIDE RAILS UP.REFUSED BREAKFAST,A FEEDER. CALL POLLACK WITHIN EASY REACH. WILL CONTINUE TO CLOSELY MONITOR.
[2017-07-15] MEDS: DOCUSATE SODIUM LIQ 100 MG/10 ML UDC PO SCH ×2 (08:45→16:50)
[2017-07-15] MEDS: risperiDONE-M 0.5 MG TAB.RAPDIS PO SCH (08:46)
[2017-07-15] MEDS: LEVOTHYROXINE SODIUM 25 MCG TABLET PO SCH (08:46)
[2017-07-15] MEDS: OLANZAPINE 2.5 MG TABLET PO SCH ×2 (12:26→16:50)
[2017-07-15] MEDS ORDERED: VALPROIC ACID 250 MG/5 ML UDC PO SCH (13:00)
[2017-07-15] MEDS ORDERED: CEFA1FRO IV (13:23)
[2017-07-15] MEDS ORDERED: VALP250S22 PO (13:23)
[2017-07-15] MEDS ORDERED: OLAN2.5T3 PO (13:23)
[2017-07-15] MEDS: FLUCONAZOLE IN NS 100 MG in PREMIX 1 EA IV SCH ×2 (15:48)
[2017-07-15 16:05] VITALS: BP 132/71
--- NOTE | 2017-07-15 17:59 | NUR ---
DISCHARGED PT TO [facility] VIA AMBULANCE WITH STABLE V/S.PT HAS NO S/S OF PAIN OR DISTRESS.REMAINS CONFUSED AND APHASIC.ON ROOM AIR WITH NO SOB.WITH SUPRAPUBIC CATHETER INTACT DRAINING CLEAR YELLOW URINE ON DE JESUS BAG WITH 300 ML URINE OUTPUT-EMPTIED PRIOR TO DISCHARGE,IV H/L TO [facility] REMAINS INTACT-DRESSING CLEAN AND DRY FOR CONTINUATION OF IV ATB THERAPY FOR SEPSIS AND UTI.REPORT CALLED IN TO JORDYN LUNA OF [facility].
== END 2017-07-15 17:54 | DRG 871 ==
LOC: ER 21:31 → TELE 23:56 → MED 07-09 10:56
PROVIDERS: ADMIT Nurse Practitioner Acute Care; ATTEND Nurse Practitioner Acute Care
PROC: 05HY33Z Insertion of Infusion Device into Upper Vein, Percutaneous Approach (ICD-10-PCS; principal; 2017-07-13)
DX: A41.9 Sepsis, unspecified organism (principal); G93.41 Metabolic encephalopathy; J15.6 Pneumonia due to other Gram-negative bacteria; L89.150 Pressure ulcer of sacral region, unstageable; E44.0 Moderate protein-calorie malnutrition; L89.320 Pressure ulcer of left buttock, unstageable; F03.90 Unspecified dementia, unspecified severity, without behavioral disturbance, psychotic disturbance, mood disturbance, and anxiety; D64.9 Anemia, unspecified; N39.0 Urinary tract infection, site not specified; G40.909 Epilepsy, unspecified, not intractable, without status epilepticus; E03.9 Hypothyroidism, unspecified; K21.9 Gastro-esophageal reflux disease without esophagitis; E78.5 Hyperlipidemia, unspecified; R65.20 Severe sepsis without septic shock; K80.20 Calculus of gallbladder without cholecystitis without obstruction; N40.0 Benign prostatic hyperplasia without lower urinary tract symptoms; I12.9 Hypertensive chronic kidney disease with stage 1 through stage 4 chronic kidney disease, or unspecified chronic kidney disease; N18.9 Chronic kidney disease, unspecified; Z68.20 Body mass index [BMI] 20.0-20.9, adult; D72.829 Elevated white blood cell count, unspecified; F39 Unspecified mood [affective] disorder; R41.0 Disorientation, unspecified; B96.20 Unspecified Escherichia coli [E. coli] as the cause of diseases classified elsewhere; Z16.35 Resistance to multiple antimicrobial drugs
CPT/HCPCS: 36415; 36569; 71045-TC; 74230-TC; 80048-TC; 80061-TC; 80076-TC; 80164-TC; 80202-TC; 81000-TC; 83605-TC; 83735-TC; 84100-TC; 84443-TC; 84484-TC; 85025-TC; 85730-TC; 87040-TC; 87070-TC; 87081-TC; 87086-TC; 87186-TC; 92526; 92611-TC; A4216; A4606; J0690; J1450; J2543; J3370; J3490; J7030; J7040; J7050; J7060; Z7610